=== PATIENT | female | born 1940 | race Caucasian/White ===

== ENCOUNTER 2017-09-23 08:28 | Day surgery (SDC) | payer MEDICARE, OTHER ==
[~2017-09-23] VITALS: Ht 165.1 cm; Wt 92.1 kg
[~2017-09-23 08:28] MED LIST: ALENDRONATE35 MG PO; CALCI17 PO; VITAMIN D3 PO; [UNRECOGNIZED DRUG - OTHER] PO
[2017-09-23 10:37] VITALS: BP 155/65
== END 2017-09-23 10:47 | disposition home or self-care (01) ==
LOC: ENDO 08:28 → ORM 11:45 → ENDO 11:45
PROVIDERS: ATTEND Internal Medicine Gastroenterology
PROC: 0DBN8ZX Excision of Sigmoid Colon, Via Natural or Artificial Opening Endoscopic, Diagnostic (ICD-10-PCS; principal; 2017-09-23)
PROC: 0DBE8ZX Excision of Large Intestine, Via Natural or Artificial Opening Endoscopic, Diagnostic (ICD-10-PCS; 2017-09-23)
DX: R19.7 Diarrhea, unspecified (principal); K57.30 Diverticulosis of large intestine without perforation or abscess without bleeding; K59.00 Constipation, unspecified; K63.5 Polyp of colon; K64.4 Residual hemorrhoidal skin tags; K64.8 Other hemorrhoids; M81.0 Age-related osteoporosis without current pathological fracture; G35 Multiple sclerosis; Z86.010 Personal history of colon polyps